=== PATIENT | female | born 1995 | race Caucasian/White ===

== ENCOUNTER 2023-05-18 22:06 | Emergency (ER) | payer MEDICAID ==
[~2023-05-18] VITALS: Ht 167.6 cm; Wt 61.7 kg
[2023-05-18] MEDS ORDERED: BENZONATATE 100 MG CAPSULE PO ONE (23:12)
[2023-05-18 23:17] VITALS: BP 106/71; TEMP 97.8
[2023-05-18] MEDS ORDERED: BENZONATATE 100 MG CAPSULE PO PRN (23:30)
[2023-05-19] MEDS ORDERED: BENZ-13 PO (00:23)
[2023-05-19 00:50] VITALS: O2SAT 98
== END 2023-05-19 00:52 | disposition home or self-care (01) ==
LOC: ER 22:11
DX: J06.9 Acute upper respiratory infection, unspecified (principal); Z79.899 Other long term (current) drug therapy